=== PATIENT | male | born 1980 | race Caucasian/White ===

== ENCOUNTER 2017-03-17 07:54 | Day surgery (SDC) | payer OTHER ==
[2017-03-17 08:26] VITALS: BMI 18.6
[2017-03-17] MEDS ORDERED: Propofol 10 mg/ml Inj (20 ML) ONE ×2 (10:30→10:42)
[2017-03-17 12:06] VITALS: BP 124/86; PULSE 78; RESP 16; TEMP 98.1; O2SAT 99
== END 2017-03-17 11:55 | disposition home or self-care (01) ==
LOC: C.ENDO 07:54
PROVIDERS: ATTEND Internal Medicine Gastroenterology
DX: D12.5 Benign neoplasm of sigmoid colon (principal); K29.70 Gastritis, unspecified, without bleeding; K64.0 First degree hemorrhoids
CPT/HCPCS: 43239; 45380; 88305; 88313; 88342; J2001; J2704